=== PATIENT | female | born 1960 | race Two or more races ===

== ENCOUNTER 2021-11-07 06:40 | Outpatient (CLI) | payer OTHER | END 2021-11-07 23:59 | disposition home or self-care (01) | LOC: LAB 06:40 | PROVIDERS: ATTEND Orthopaedic Surgery | DX: Z01.812 Encounter for preprocedural laboratory examination (principal); Z20.822 Contact with and (suspected) exposure to COVID-19 ==

== ENCOUNTER 2021-11-08 09:59 | Outpatient (CLI) | payer OTHER ==
[2021-11-08 11:07] LABS: *BILIRUBIN,URIN NEGATIVE (NEGATIVE); *BLOOD, URINE NEGATIVE (NEGATIVE); *CLARITY,URINE CLEAR (CLEAR); *COLOR,URINE YELLOW (YELLOW); *KETONES,URINE NEGATIVE (NEGATIVE); *UROBILINOGEN,URINE 0.2 E.U./dl (NORMAL); LEUKOCYTE ESTERASE ,URINE NEGATIVE (NEGATIVE); NITRITE, URINE NEGATIVE (NEGATIVE); UGLUCOSE NEGATIVE (NEGATIVE)
[2021-11-08 11:16] LABS: HEMATOCRIT 37.7 % (31.2-41.9); MEAN CORPUSCULAR HEMOGLOBIN 31.1 uug (24.7-32.8); MEAN CORPUSCULAR VOLUME 90.9 fL (75.5-95.3); PLATELET COUNT (AUTO) 276 K/uL (179-408)
[2021-11-08 11:17] LABS: BILIRUBIN,TOTAL 0.4 mg/dL (0.2-1.0); CREATININE 0.7 mg/dL (0.6-1.3); POTASSIUM 3.8 mmol/L (3.5-5.1); TOTAL PROTEIN, SERUM 7.1 g/dL (6.4-8.2)
== END 2021-11-08 23:59 | disposition home or self-care (01) ==
LOC: LAB 09:59
PROVIDERS: ATTEND Orthopaedic Surgery
DX: Z01.818 Encounter for other preprocedural examination (principal); I51.7 Cardiomegaly; I21.9 Acute myocardial infarction, unspecified; R09.89 Other specified symptoms and signs involving the circulatory and respiratory systems
CPT/HCPCS: 36415; 71045; 85025; 85730; 93005; 93307; A4663

== ENCOUNTER 2021-11-09 06:53 | Day surgery (SDC) | payer OTHER ==
[2021-11-09] MEDS ORDERED: hydrALAZINE HCL 20 MG/1 ML VIAL IM ONE (06:54)
[2021-11-09] MEDS ORDERED: NEOSTIGMINE METHYLSULFATE 10 MG/10 ML VIAL IM ONE (06:54)
[2021-11-09] MEDS ORDERED: ETOMIDATE 20 MG/10 ML VIAL IV ONE (06:54)
[2021-11-09] MEDS ORDERED: SEVOFLURANE 250 ML BOTTLE IH ONE (06:54)
[2021-11-09] MEDS ORDERED: DEXAMETHASONE SOD PHOSPHATE 4 MG INJ IV ONE (06:54)
[2021-11-09] MEDS ORDERED: GLYCOPYRROLATE 0.2 MG/ML VIAL IJ ONE (06:54)
[2021-11-09] MEDS ORDERED: KETOROLAC TROMETHAMINE 30 MG INJ IM ONE (06:54)
[2021-11-09] MEDS ORDERED: ONDANSETRON 4 MG/2 ML VIAL IV ONE (06:54)
[2021-11-09] MEDS ORDERED: LIDOCAINE-MPF 2% 5 ML VIAL IJ ONE (06:54)
[2021-11-09] MEDS ORDERED: CEFAZOLIN 1 G VIAL IM ONE (06:54)
[2021-11-09] MEDS ORDERED: BUPIVACAINE/EPI PF 0.5% 10 ML VIAL ONE ×2 (08:30→09:55)
[2021-11-09] MEDS ORDERED: POLYMYXIN B SULFATE 500,000 UNITS VIAL ONE (08:31)
[2021-11-09] MEDS ORDERED: FENTANYL CITRATE 100 MCG/2 ML AMPUL ONE (08:48)
[2021-11-09] MEDS ORDERED: HYDROMORPHONE 2 MG/1 ML DISP.SYRIN ONE (08:48)
[2021-11-09] MEDS ORDERED: ROCURONIUM BROMIDE 50 MG/5 ML VIAL ONE (08:49)
[2021-11-09] MEDS ORDERED: INSULIN REGULAR, HUMAN 300 UNIT/3 ML VIAL ONE (11:32)
[2021-11-09] MEDS ORDERED: INSULIN REGULAR, HUMAN 300 UNITS/3 ML VIAL SQ ONE ×2 (11:45→12:00)
[2021-11-09] MEDS ORDERED: METFORMIN HCL 500 MG TABLET PO ONE (12:30)
== END 2021-11-09 14:45 | disposition home or self-care (01) ==
LOC: DS 06:53
PROVIDERS: ATTEND Orthopaedic Surgery
DX: M75.121 Complete rotator cuff tear or rupture of right shoulder, not specified as traumatic (principal); M19.011 Primary osteoarthritis, right shoulder; I10 Essential (primary) hypertension; E11.9 Type 2 diabetes mellitus without complications; Z79.899 Other long term (current) drug therapy; Z98.890 Other specified postprocedural states
CPT/HCPCS: 20610; 23120; 23130; 23410; 23420; 82962 ×3; C1713; J0360; J0690; J1100; J1170; J1815 ×2; J1885; J2405; J3010; J3490 ×7; A4565; A4649; J7030; J7050